=== PATIENT | female | born 1965 | race Caucasian/White ===

== ENCOUNTER 2018-08-28 21:18 | Emergency (ER) | payer MEDICARE, OTHER ==
[~2018-08-28] VITALS: Ht 162.6 cm; Wt 70.3 kg
--- NOTE | 2018-08-28 21:33 | NUR ---
Patient ambulated with stable gait using walker. Patient AAOx4. Speech is clear, speaks in complete sentences. Patient came in with c/o diarrhea x4 days and body aches/pain. Respiratory even and unlabored. No cardiovascular distress noted. Patient in bed at lowest position, side rails upx2, call light within reach. Fall precautions implemented per protocol.
--- NOTE | 2018-08-28 21:37 | NUR ---
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
[2018-08-28] MEDS ORDERED: GABA-534 PO (21:40)
[2018-08-28] MEDS ORDERED: ZOLP10TA6 PO (21:40)
[2018-08-28] MEDS ORDERED: LURA40TA PO (21:40)
[2018-08-28] MEDS ORDERED: LORA1TAB PO (21:40)
[2018-08-28] MEDS ORDERED: DIVA125T2 PO (21:40)
[2018-08-28 21:56] LABS: *BILIRUBIN,URIN NEGATIVE (NEGATIVE); *BLOOD, URINE NEGATIVE (NEGATIVE); *CLARITY,URINE CLEAR (CLEAR); *COLOR,URINE LIGHT YELLOW (YELLOW); *KETONES,URINE NEGATIVE (NEGATIVE); *UROBILINOGEN,URINE 0.2 E.U./dl (NORMAL); LEUKOCYTE ESTERASE ,URINE NEGATIVE (NEGATIVE); NITRITE, URINE NEGATIVE (NEGATIVE); UGLUCOSE NEGATIVE (NEGATIVE)
[2018-08-28 22:01] LABS: BASOPHILS # (AUTO) 0.1 K/uL (0.0-8.0); BASOPHILS % (AUTO) 0.8 % (0.0-2.0); EOSINOPHILS # (AUTO) 0.2 K/uL (0.0-0.7); EOSINOPHILS % (AUTO) 2.8 % (0.0-7.0); HEMATOCRIT 38.7 % (31.2-41.9); HEMOGLOBIN 13.3 g/dL (10.9-14.3); LYMPHOCYTES # (AUTO) 2.8 K/uL (20.0-40.0); LYMPHOCYTES % (AUTO) 39.9 % (20.5-51.5); MEAN CORPUSCULAR HGB CONC 34 g/dL (32.3-35.6); MONOCYTES # (AUTO) 0.6 K/uL (2.0-10.0); MONOCYTES % (AUTO) 8.6 % (0.0-11.0); NEUTROPHILS # (AUTO) 3.4 K/uL (1.8-8.9); NEUTROPHILS % (AUTO) 47.9 % (38.5-71.5); PLATELET COUNT (AUTO) 329 K/uL (179-408); RED BLOOD CELL COUNT(AUTO) 4.03 MIL/uL (3.63-4.92); WHITE BLOOD COUNT (AUTO) 7.1 K/uL (3.8-11.8)
[2018-08-28 22:05] LABS: CREATININE 0.7 mg/dL (0.6-1.3); ETHANOL < 3 MG/DL (0-0); POTASSIUM 3.9 mmol/L (3.5-5.1)
[2018-08-28 22:09] LABS: SQUAMOUS EPITHELIAL CELL,UR FEW /HPF (NONE SEEN); WBC,URINE NONE SEEN /HPF (0-3)
[2018-08-28 22:15] LABS: *AMPHETAMINE, URINE NEGATIVE (NEGATIVE); *BARBITURATE, URINE NEGATIVE (NEGATIVE); *CANNABINOID, URINE NEGATIVE (NEGATIVE); *COCCAINE, URINE NEGATIVE (NEGATIVE); *OPIATE, URINE NEGATIVE (NEGATIVE); *PHENCYCLIDINE SCREEN,URINE NEGATIVE (NEGATIVE)
[2018-08-28 22:15] LABS: BILIRUBIN,DIRECT 0.1 mg/dL (0.0-0.2); BILIRUBIN,TOTAL 0.4 mg/dL (0.2-1.0); TOTAL PROTEIN, SERUM 7.1 g/dL (6.4-8.2)
--- NOTE | 2018-08-28 22:39 | NUR ---
Phone call made to Cherrie, Crisis Team, left message on voicemail.
--- NOTE | 2018-08-28 22:58 | NUR ---
Follow up phone call placed for DONNA Grier within an hour.
--- NOTE | 2018-08-28 23:14 | NUR ---
Patient in bed at lowest position, Patient is asleep NAD.
--- NOTE | 2018-08-28 23:44 | NUR ---
Cherrie at bedside for crisis eval
--- NOTE | 2018-08-28 23:52 | NUR ---
Upon evaluation by Cherrie, patient verbalized SI with plan. Nursing [employer] ground crew supervisor called, she is finding a sitter for patient.
--- NOTE | 2018-08-29 00:07 | NUR ---
Security at bedside for sitting.
--- NOTE | 2018-08-29 01:09 | NUR ---
Call placed for Xiomara, [employer] owner operator of [employer] care will be coming to pick her up in about 20 minutes.
[2018-08-29] MEDS ORDERED: KETOROLAC TROMETHAMINE 30 MG INJ ONE (01:13)
[2018-08-29] MEDS ORDERED: KETOROLAC TROMETHAMINE 30 MG INJ IM ONE (01:15)
--- NOTE | 2018-08-29 01:41 | NUR ---
Patient discharged to home in stable conditon. Written and verbal after care instructions given. Patient verbalizes understanding of instructions. Patient ambulated with stable gait with walker.
[2018-08-29 01:44] VITALS: BP 118/83
== END 2018-08-29 01:50 | disposition home or self-care (01) ==
LOC: ER 21:21
DX: R19.7 Diarrhea, unspecified (principal); G89.29 Other chronic pain; M54.9 Dorsalgia, unspecified; F17.290 Nicotine dependence, other tobacco product, uncomplicated; R45.851 Suicidal ideations; Z79.899 Other long term (current) drug therapy
CPT/HCPCS: 36415; 71045; 80048; 80076; 80164; 80307; 81001; 85025; 93005; 96372; 99284; 99406; G0480; J1885; A4663

== ENCOUNTER 2018-10-15 21:20 | Emergency (ER) | payer MEDICARE, OTHER ==
[~2018-10-15] VITALS: Ht 162.6 cm; Wt 70.3 kg
[~2018-10-15 21:20] MED LIST: DIVA125T2 PO; GABA-534 PO; LORA1TAB PO; LURA40TA PO; ZOLP10TA6 PO
--- NOTE | 2018-10-15 21:45 | NUR ---
Patient walked in to ER c/o "Pain." Patient states she has pain everywhere, when prompted states that it is more specifically back pain, neck pain, and "gallbladder" pain. She is requesting morphine and ativan. Patient is A/O x4, ambulatory w/FWW. To room 5A.
--- NOTE | 2018-10-15 22:00 | NUR ---
JYOTI performed MSE.
[2018-10-15] MEDS ORDERED: diphenhydrAMINE 50 MG/1 ML VIAL IV ONE (22:15)
[2018-10-15] MEDS ORDERED: ONDANSETRON IV *ER 4 MG/2 ML VIAL IV ONE (22:15)
[2018-10-15] MEDS ORDERED: IV NORMAL SALINE 1000 ML BAG IV ONE (22:15)
[2018-10-15] MEDS ORDERED: KETOROLAC TROMETHAMINE 15 MG INJ IV ONE (22:15)
[2018-10-15] MEDS ORDERED: KETOROLAC TROMETHAMINE 15 MG INJ ONE (22:18)
[2018-10-15] MEDS ORDERED: ONDANSETRON 4 MG/2 ML VIAL ONE (22:18)
[2018-10-15] MEDS ORDERED: diphenhydrAMINE 50 MG/1 ML VIAL ONE (22:20)
[2018-10-15 22:23] LABS: BASOPHILS # (AUTO) 0.1 K/uL (0.0-8.0); BASOPHILS % (AUTO) 1.3 % (0.0-2.0); EOSINOPHILS # (AUTO) 0.6 K/uL (0.0-0.7); EOSINOPHILS % (AUTO) 6.6 % (0.0-7.0); HEMATOCRIT 38.3 % (31.2-41.9); HEMOGLOBIN 13.2 g/dL (10.9-14.3); LYMPHOCYTES # (AUTO) 3.2 K/uL (20.0-40.0); LYMPHOCYTES % (AUTO) 38.2 % (20.5-51.5); MEAN CORPUSCULAR HEMOGLOBIN 32.8 uug (24.7-32.8); MEAN CORPUSCULAR HGB CONC 34 g/dL (32.3-35.6); MEAN CORPUSCULAR VOLUME 95.4 fL (75.5-95.3); MONOCYTES # (AUTO) 0.6 K/uL (2.0-10.0); MONOCYTES % (AUTO) 6.8 % (0.0-11.0); NEUTROPHILS # (AUTO) 3.9 K/uL (1.8-8.9); NEUTROPHILS % (AUTO) 47.1 % (38.5-71.5); PLATELET COUNT (AUTO) 370 K/uL (179-408); RED BLOOD CELL COUNT(AUTO) 4.01 MIL/uL (3.63-4.92); WHITE BLOOD COUNT (AUTO) 8.3 K/uL (3.8-11.8)
[2018-10-15 22:32] LABS: CREATININE 0.5 mg/dL (0.6-1.3); POTASSIUM 3.6 mmol/L (3.5-5.1)
[2018-10-15 22:38] LABS: BILIRUBIN,DIRECT 0.1 mg/dL (0.0-0.2); BILIRUBIN,TOTAL 0.3 mg/dL (0.2-1.0); TOTAL PROTEIN, SERUM 6.8 g/dL (6.4-8.2)
[2018-10-15 23:07] LABS: *BILIRUBIN,URIN NEGATIVE (NEGATIVE); *CLARITY,URINE CLEAR (CLEAR); *KETONES,URINE NEGATIVE (NEGATIVE); *UROBILINOGEN,URINE 0.2 E.U./dl (NORMAL); LEUKOCYTE ESTERASE ,URINE NEGATIVE (NEGATIVE); NITRITE, URINE NEGATIVE (NEGATIVE); UGLUCOSE NEGATIVE (NEGATIVE)
[2018-10-15 23:08] LABS: *BLOOD, URINE TRACE (NEGATIVE)
[2018-10-15 23:09] LABS: *COLOR,URINE STRAW (YELLOW)
[2018-10-15 23:21] LABS: BACTERIA,URINE NONE SEEN /HPF (NONE SEEN); RBC,URINE 0-3 /HPF (0-3); SQUAMOUS EPITHELIAL CELL,UR NONE SEEN /HPF (NONE SEEN); WBC,URINE 0-3 /HPF (0-3)
--- NOTE | 2018-10-16 01:00 | NUR ---
Patient requested food and was advised of NPO status. Patient observed drinking from a bottle to which she states was "soda." Patient was further educated regarding NPO status. ERMD notified.
--- NOTE | 2018-10-16 01:20 | NUR ---
Radiology at bedside for US.
[2018-10-16] MEDS ORDERED: MORPHINE SULFATE 4 MG/1 ML DISP.SYRIN ONE (01:44)
[2018-10-16] MEDS ORDERED: LORAZEPAM 2 MG/1 ML VIAL ONE (01:44)
[2018-10-16] MEDS ORDERED: LORAZEPAM 2 MG/1 ML VIAL IV ONE (01:45)
[2018-10-16] MEDS ORDERED: MORPHINE SULFATE 4 MG/1 ML DISP.SYRIN IV ONE (01:45)
--- NOTE | 2018-10-16 04:21 | NUR ---
Patient is resting comfortably in bed with eyes closed
--- NOTE | 2018-10-16 05:52 | NUR ---
Patient discharged to home in stable conditon. Written and verbal after care instructions given. Patient verbalizes understanding of instructions.
== END 2018-10-16 06:01 | disposition home or self-care (01) ==
LOC: ER 21:25
DX: K80.50 Calculus of bile duct without cholangitis or cholecystitis without obstruction (principal); G89.29 Other chronic pain; M54.9 Dorsalgia, unspecified; F17.200 Nicotine dependence, unspecified, uncomplicated; Z79.899 Other long term (current) drug therapy
CPT/HCPCS: 36415; 71045; 74176; 76705; 80048; 80076; 81001; 83690; 84484; 85025; 85730; 93005; 96361; 96374; 96375; 99284; J1200; J1885; J2060; J2270; J2405; 70030-TC; A4663; J7030